=== PATIENT | female | born 1965 | race Caucasian/White ===

== ENCOUNTER 2017-09-09 23:05 | Inpatient (IN) ==
[2017-09-09 23:23] LABS: Basophils % 0.2 % (0.1-2.0); Eosinophils # 0.3 K/mm3 (0.0-0.4); Eosinophils % 1.6 % (0.1-12.0); Hematocrit 35.6 % (37.0-47.0); Hemoglobin 12.6 g/dL (12.2-16.2); Lymphocytes # 0.5 K/mm3 (0.7-4.5); Lymphocytes % 2.7 K/mm3 (10-50); Mean Corpuscular HGB Conc 35.4 g/dL (31.8-35.4); Mean Corpuscular Hemoglobin 30.3 pg (27.0-31.2); Mean Corpuscular Volume 85.6 fl (81-99); Mean Platelet Volume 7.8 fl (7.4-10.4); Monocytes # 0.3 K/mm3 (0.1-1.0); Monocytes % 1.4 % (1.7-9.3); Neutrophils # 17.1 K/mm3 (1.8-7.8); Neutrophils % 94.1 % (37.0-80.0); Platelet Count 231 K/mm3 (142-424); Red Blood Count 4.17 M/mm3 (4.20-5.40); Red Cell Distribution Width 12.7 % (11.5-17.5); White Blood Count 18.2 K/mm3 (4.8-10.8)
[2017-09-09 23:28] LABS: Microscopic, Urine URINE MICROSCOPIC (MICROSCOPIC)
[2017-09-09 23:33] LABS: Appearance,Urine SL CLOUDY (Clear); Bilirubin,Urine Negative (Negative); Blood, Urine 2+ (Negative); Color,Urine YELLOW (Yellow); Glucose,Urine (UA) Negative (Negative); Ketones,Urine 1+ (Negative); Leukocyte Esterase,Urine TRACE (Negative); Protein,Urine TRACE (Negative); Specific Gravity, Urine 1.025 (1.005-1.030); Urobilinogen,Urine 0.2 EU/dl (0.2)
[2017-09-09 23:36] LABS: Amorphous Sediment,Urine 1+ /lpf; Mucus,Urine 2+ /lpf
[2017-09-09 23:39] LABS: Lymphocytes % 3 % (10-50); Monocytes % 3 % (2-9); Neutrophils % 82 % (42-76); RBC Morphology Normal; Rouleaux 1+; Total Cells Counted 100; Toxic Granulation 1+
[2017-09-09 23:40] LABS: Albumin Level 3.2 gm/dL (3.4-5.0); Albumin/Globulin Ratio 0.9 (1.1-1.8); Anion Gap 16.1 mEq/L (5-15); C-Reactive Protein 9.4 mg/L (0.0-0.9); Calcium 7.9 mg/dL (8.5-10.1); Globulin 3.4 gm/dl (1.3-3.2); Potassium 3.1 mmoL/L (3.5-5.1); Total Protein,Serum 6.6 gm/dL (6.4-8.2)
[2017-09-09 23:48] LABS: Creatine Kinase 37 U/L (26-192)
--- NOTE | 2017-09-10 00:17 | Emergency Department Note ---
ED Disposition Clinical Impression: Colitis, Hypokalemia, Vasovagal episode Disposition: Admitted As Inpatient Condition on Discharge: Good Referrals: Austin Gomez MD [Primary Care Provider] - - Critical Care Critical Care Time: No Attestation: On 09/09/17, the high probability of a clinically significant, sudden or life threatening deterioration of the following system(s) required my full and direct attention, intervention and personal management. The time I documented below is in addition to time spent performing reported procedures but includes the following listed in this critical care notation. Medical Decision Making - Medical Records Medical records reviewed: Yes: I reviewed the patient's medical records. - Bebo Inquiry Pt receiving controlled substance: No Vital Signs: 09/09/17 23:05 09/09/17 23:22 Temperature 98.6 F Temperature Source Oral Pulse Rate [Orthostatic Lying Right Radial] 96 H Pulse Rate [Orthostatic Sitting Right Radial] 104 H Pulse Rate [Orthostatic Standing Right Radial] 111 H Pulse Rate [Right Radial] 95 H Respiratory Rate 18 Blood Pressure [Orthostatic Lying Right Arm] 109/56 Blood Pressure [Orthostatic Sitting Right Arm] 124/65 Blood Pressure [Orthostatic Standing Right Arm] 102/50 Blood Pressure [Right Arm] 104/62 Blood Pressure Mean [Right Arm] 76 Blood Pressure Source [Right Arm] Automatic Cuff Blood Pressure Position [Right Arm] Sitting 02 Sat by Pulse Oximetry 98 Oxygen Delivery Method Room Air - Lab Data Lab results reviewed: Yes: I reviewed the patient's lab results. Lab Results 09/09/17 23:18: WBC 18.2 H, RBC 4.17 L, Hgb 12.6, Hct 35.6 L, MCV 85.6, MCH 30.3 , MCHC 35.4, RDW 12.7, Plt Count 231, MPV 7.8, Neut % (Auto) 94.1 H, Lymph % ( Auto) 2.7 L, Haakon % (Auto) 1.4 L, Eos % (Auto) 1.6, Baso % (Auto) 0.2, Neut # ( Auto) 17.1 H, Lymph # (Auto) 0.5 L, Haakon # (Auto) 0.3, Eos # (Auto) 0.3, Baso # (Auto) 0.0, Total Counted 100, Neutrophils % (Manual) 82 H, Band Neutrophils % 12.0 H, Lymphocytes % (Manual) 3 L, Monocytes % (Manual) 3, Toxic Granulation 1+ , Platelet Estimate Normal, RBC Morphology Normal, Rouleaux 1+ 09/09/17 23:18: Sodium 137, Potassium 3.1 L, Chloride 101, Carbon Dioxide 23, Anion Gap 16.1 H, BUN 14, Creatinine 0.94, Estimated Creat Clear 64, Estimated GFR 62, Est GFR ( Amer) 75, Glucose 125 H, Calcium 7.9 L, Total Bilirubin 1.0, AST 10 L, ALT 24, Alkaline Phosphatase 54, C-Reactive Protein 9.4 H, Total Protein 6.6, Albumin 3.2 L, Globulin 3.4 H, Albumin/Globulin Ratio 0.9 L 09/09/17 23:18: ESR 12 09/09/17 23:18: Total Creatine Kinase 37, CK-MB (CK-2) < 0.5, CK-MB (CK-2) Rel Index 1.4, Troponin I < 0.02 09/09/17 23:22: Urine Color Yellow, Urine Appearance Sl cloudy, Urine pH 6.0, Ur Specific E[place] 1.025, Urine Protein Trace, Urine Glucose (UA) Negative, Urine Ketones 1+, Urine Blood 2+, Urine Nitrate Negative, Urine Bilirubin Negative, Urine Urobilinogen 0.2, Ur Leukocyte Esterase Trace, Urine RBC 5-10, Urine WBC 3-5, Ur Squamous Epith Cells 10-20, Amorphous Sediment 1+, Urine Mucus 2+ 09/09/17 23:59: Lactic Acid 1.8 Result diagrams: 09/09/17 23:18 09/09/17 23:18 Orders (Tests/Meds): ORDERS Category Date Time Status CT abdomen pelvis wo con Stat Cat Scan 09/09/17 23:[address] head/brain wo con Stat Cat Scan 09/09/17 23:12 Taken Diarrhea Panel, PCR Stat Lab 09/09/17 23:23 Received Blood Culture Stat Micro 09/09/17 23:59 Received ECG Request by /Zhao Stat Y 09/09/17 23:12 Ordered - CT Data CT Scan: Head, Abdomen, Pelvis Time Received: 00:[address] Reviewed: Yes: I have viewed the radiologist's interpretation Preliminary Findings: Abnormal (colitis) - ECG Data Tracing #1 I reviewed this ECG and interpreted as documented below: Normal Sinus Rhythm: Yes Ischemic changes: non-specific ST-T wave changes - Physician Consults Physician Consulted: myrna Reason -: Admission Nausea/Vomiting/Diarrhea HPI - General Chief complaint: Dizziness Stated complaint: dizziness,N/V/D, Abd pain Time Seen by Provider: 09/09/17 23:10 Mode of Arrival: EMS Source of Information: Patient, Spouse, EMS, Medical Record Limitations: No Limitations Description of Symptoms (Recalled from ER Triage Doc. by RN): Pt reports nausea , vomiting, diarrhea, and abdominal pain for two days. Tonight she got dizzy and had a syncopal episode. - History of Present Illness HPI Narrative: crampy abd pain over the last 2 days with diarrhea and dec po intake and vasovagal episode petrona GARCIA complaint: nausea, vomiting, diarrhea, abdominal pain Onset (ago): day(s) Description of Diarrhea: other (foul smell) Associated Abdominal Pain: Yes Location of pain: diffuse Severity: moderate Associated symptoms: nausea/vomiting - Related Data Home Medications Medication Instructions Recorded Confirmed Cefdinir [Omnicef 300mg Capsule] 300 mg PO BID 09/09/17 09/09/17 Losartan/Hydrochlorothiazide 1 tab PO DAILY 09/09/17 09/09/17 [Losartan-Hctz 50-12.5 mg Tab] Allergies Allergy/AdvReac Type Severity Reaction Status Date / Time Tetanus Vaccines and Toxoid AdvReac Severe I-ITCHING Verified 09/09/17 23:12 [TETANUS VACCINES & TOXOID] [facility] History I have reviewed the patient's past medical history: Yes - Social History Alcohol Intake: never - Psychiatric History Expresses thoughts of harming self/others: None Suicide Plan Description: No Plan ROS Obtained: Yes All systems reviewed & no additional complaints - Constitutional Constitutional: Denies fever(s) - Eyes Eyes: Denies change in vision - ENT Ears, Nose, Mouth, and Throat: Denies sore throat - Cardiovascular Cardiovascular: Denies chest pain - Respiratory Respiratory: No cough - Gastrointestinal Gastrointestingal: Reports: as per HPI, abdominal pain, diarrhea, nausea, vomiting - Genitourinary Female Genitourinary: Denies hematuria - Musculoskeletal Musculoskeletal: Denies joint pain, Denies joint swelling - Integumentary/Breasts Skin/Breast: Denies rash - Neurologic Neurologic: Denies seizure-like activity Physical Exam - General General appearance: in no apparent distress - Head Head exam: normocephalic - Eye Eye exam: Present: PERRL, EOMI - ENT ENT exam: Present: mucous membranes dry - Neck Neck exam: Present: trachea midline - Respiratory Respiratory exam: Absent: respiratory distress - Cardiovascular Cardiovascular exam: Present: regular rate, systolic murmur - Abdominal Exam Abdominal exam: Present: soft, tenderness Abdominal tenderness: Present: epigastrium, moderate - Extremities Exam Extremities exam: Present: full ROM - Neurological Exam Neurological exam: Present: alert, oriented X3, CN II-XII intact - Psychiatric Psychiatric exam: Present: normal affect - Skin Skin exam: Absent: rash
[2017-09-10 06:38] LABS: Basophils # 0.1 K/mm3 (0-0.2); Basophils % 0.3 % (0.1-2.0); Eosinophils # 0.3 K/mm3 (0.0-0.4); Eosinophils % 1.7 % (0.1-12.0); Hematocrit 35.1 % (37.0-47.0); Lymphocytes # 0.7 K/mm3 (0.7-4.5); Lymphocytes % 4.1 K/mm3 (10-50); Mean Corpuscular HGB Conc 34.3 g/dL (31.8-35.4); Mean Corpuscular Hemoglobin 29.4 pg (27.0-31.2); Mean Corpuscular Volume 85.7 fl (81-99); Mean Platelet Volume 7.6 fl (7.4-10.4); Monocytes # 0.4 K/mm3 (0.1-1.0); Monocytes % 2.5 % (1.7-9.3); Neutrophils # 15.4 K/mm3 (1.8-7.8); Neutrophils % 91.4 % (37.0-80.0); Platelet Count 239 K/mm3 (142-424); Red Cell Distribution Width 12.9 % (11.5-17.5); White Blood Count 16.8 K/mm3 (4.8-10.8)
[2017-09-10 06:42] LABS: Anion Gap 14.9 mEq/L (5-15); Calcium 7.7 mg/dL (8.5-10.1)
[2017-09-10 06:51] LABS: Potassium 2.9 mmoL/L (3.5-5.1)
--- NOTE | 2017-09-10 07:35 | Pharmacy Consult Notes ---
[facility] Pharmacy VTE Monitoring - Patient Demographics Admission date: 09/10/17 Report Date: 09/10/17 Time: 07:35 Allergies/Adverse Reactions: Patient Allergies Tetanus Vaccines and Toxoid [TETANUS VACCINES & TOXOID] Adverse Reaction (Severe , Verified 09/09/17 23:12) I-ITCHING Height: 1.47 m Weight: 61.944 kg Patient Problems: Current Active Problems Colitis (Acute) Hypokalemia (Acute) Vasovagal episode (Acute) - VTE Risk Labs: VTE Related Lab Results Hgb 12.0 g/dL (12.2-16.2) L 09/10/17 06:18 Hct 35.1 % (37.0-47.0) L 09/10/17 06:18 Plt Count 239 K/mm3 (142-424) 09/10/17 06:18 BUN 13 mg/dL (7-18) 09/10/17 06:18 Creatinine 0.82 mg/dL (0.55-1.02) 09/10/17 06:18 Estimated Creat Clear 78 mL/min (0-300) 09/10/17 06:18 Was VTE Risk Assessment Performed: Yes VTE Score: 5 VTE Risk Level: Very Low Risk - Prophylaxis VTE Prophylaxis Ordered?: Yes Types of VTE Prophylaxis: TEDS Knee High Location of Applied Device: Bilateral Lower Extremeties - VTE Diagnosis Confirmed Treatment or plan recommended: Continue Current Treatment
--- NOTE | 2017-09-10 08:09 | History & Physical Report ---
*Admission Date: 09/10/17 <EktaRenyMonica 09/10/17 08:22> *Chief complaint: abdominal pain,vomiting and diarrhea <EktaRenyMonica 08:22> *History of present illness: Ms. Gross is a 51-year-old female with a history of hypertension and depression who presented to [facility] emergency room after experiencing nausea, vomiting, and diarrhea for 24 hours. She and her also described a syncopal episode when she was going to the bathroom. Her states that she was out for about a minute and she did lose control of her bowels or bladder. She describes numerous stools along with vomiting and dry heaving. She denies fever. She denies chest pain, shortness of breath and palpitations. She was seen in the office of [facility] on 2017 and was started on Ceftin for a right otitis media. She has had no other respiratory symptoms. She arrived in the room about 2 AM and has had minimal sleep. She has had no further vomiting or diarrhea since admission. She continues to have some abdominal pain. To note patient has recently been started on hydrochlorothiazidelosartan 12.5 50 for her hypertension. Follow-up in the office on 08/31/2017 showed a blood pressure of 118/74. <Monica Dash 09/10/17 08:22> [facility] History Medical History: Reports:: Depression, Hypertension, Migraine Denies:: Cancer, Chronic Obstructive Pulmonary Disease (COPD), Diabetes Mellitus Type 1, Diabetes Mellitus Type 2, MRSA <Monica Dash 09/10/17 08: 22> Other Medical History: Reports: Arthritis, Sinus Problems <Monica Dash 08:22> Other Surgeries: Yes: Appendectomy, , Hernia Repair <Monica Dash 09/10/17 08:22> Amputation: No <Monica Dash 09/10/17 08:22> Fractures: No <Monica Dash 09/10/17 08:22> - *Social History Educational Level: Completed High School <Monica Dash 09/10/17 08:22> Alcohol Intake: never <Moinca Dash 09/10/17 08:22> Occupational Status: employed <Monica Dash 09/10/17 08:22> Housing: house <Monica Dash 09/10/17 08:22> Household Members: spouse <Monica Dash 09/10/17 08:22> - Psychiatric History Expresses thoughts of harming self/others: None <Monica Dash 09/10/17 08: 22> Suicide Plan Description: No Plan <Monica Dash 09/10/17 08:22> *Family Hx:: Cancer, Heart Attack, Hypertension <Monica Dash 09/10/17 08: 22> Review of Systems - Constitutional Denies fever(s), Denies headache(s) <Monica Dash 09/10/17 08:22> - ENT Denies ear pain, Denies sore throat <Monica Dash 09/10/17 08:22> - *Cardiovascular Denies chest pain, Denies shortness of breath, Denies irregular heart rhythm, Denies leg swelling <Monica Dash 09/10/17 08:22> - *Respiratory Denies chest congestion, Denies cough, Denies shortness of breath, Denies coughing up blood <Monica Dash 09/10/17 08:22> - *Gastrointestinal Reports abdominal pain, Reports change in bowel habits, Reports change in stools , Reports cramping, Reports loose stools, Reports nausea, Reports vomiting, Denies constipation, Denies heartburn, Denies vomiting blood, Denies bright, red blood in stools, Denies black, tarry stools <Monica Dash 09/10/17 08: 22> - *Genitourinary Denies blood in urine <Monica Dash 09/10/17 08:22> Comments: Decrease in urinary output. Irregular menses. <Monica Dash 09/10/17 08:22> - *Musculoskeletal Denies abnormal walking, Denies joint pain <Monica Dash 09/10/17 08:22> - *Neurologic Reports dizziness, Reports fainting, Reports dizziness, Denies seizure-like activity <Monica Dash 09/10/17 08:22> Comments: Patient did have a fainting episode when going to the bathroom with a fall just prior to this. She describes dizziness prior to the fall but no chest pain or shortness of breath. <Monica Dash - 09/10/17 08:22> Meds Home Medications Medication Instructions Recorded Confirmed Type Cefdinir [Omnicef 300mg Capsule] 300 mg PO BID 09/09/17 09/09/17 History Losartan/Hydrochlorothiazide 1 tab PO DAILY 09/09/17 09/09/17 History [Losartan-Hctz 50-12.5 mg Tab] <Austin Gomez - 09/10/17 17:41> Allergies Allergy/AdvReac Type Severity Reaction Status Date / Time Tetanus Vaccines and Toxoid AdvReac Severe I-ITCHING Verified 09/09/17 23:12 [TETANUS VACCINES & TOXOID] <Austin Gomez - 09/10/17 17:41> Exam Vital signs and Labs for Last 24 Hours: Temp Pulse Resp BP Pulse Ox 98.5 F 89 18 104/55 94 L 09/10/17 15:37 09/10/17 15:37 09/10/17 16:03 09/10/17 15:37 09/10/17 15:37 Laboratory Results - last 24 hr 09/09/17 23:18: WBC 18.2 H, RBC 4.17 L, Hgb 12.6, Hct 35.6 L, MCV 85.6, MCH 30.3 , MCHC 35.4, RDW 12.7, Plt Count 231, MPV 7.8, Neut % (Auto) 94.1 H, Lymph % ( Auto) 2.7 L, K[place]haw % (Auto) 1.4 L, Eos % (Auto) 1.6, Baso % (Auto) 0.2, Neut # ( Auto) 17.1 H, Lymph # (Auto) 0.5 L, K[place] # (Auto) 0.3, Eos # (Auto) 0.3, Baso # (Auto) 0.0, Total Counted 100, Neutrophils % (Manual) 82 H, Band Neutrophils % 12.0 H, Lymphocytes % (Manual) 3 L, Monocytes % (Manual) 3, Toxic Granulation 1+ , Platelet Estimate Normal, RBC Morphology Normal, Rouleaux 1+ 09/09/17 23:18: Sodium 137, Potassium 3.1 L, Chloride 101, Carbon Dioxide 23, Anion Gap 16.1 H, BUN 14, Creatinine 0.94, Estimated Creat Clear 64, Estimated GFR 62, Est GFR ( Amer) 75, Glucose 125 H, Calcium 7.9 L, Total Bilirubin 1.0, AST 10 L, ALT 24, Alkaline Phosphatase 54, C-Reactive Protein 9.4 H, Total Protein 6.6, Albumin 3.2 L, Globulin 3.4 H, Albumin/Globulin Ratio 0.9 L 09/09/17 23:18: ESR 12 09/09/17 23:18: Total Creatine Kinase 37, CK-MB (CK-2) < 0.5, CK-MB (CK-2) Rel Index 1.4, Troponin I < 0.02 09/09/17 23:22: Urine Color Yellow, Urine Appearance Sl cloudy, Urine pH 6.0, Ur Specific Down[place] 1.025, Urine Protein Trace, Urine Glucose (UA) Negative, Urine Ketones 1+, Urine Blood 2+, Urine Nitrate Negative, Urine Bilirubin Negative, Urine Urobilinogen 0.2, Ur Leukocyte Esterase Trace, Urine RBC 5-10, Urine WBC 3-5, Ur Squamous Epith Cells 10-20, Amorphous Sediment 1+, Urine Mucus 2+ 09/09/17 23:59: Lactic Acid 1.8 09/10/17 00:20: Stl Aeromonas (PCR) Not detected, Stl C. cayetanensis PCR Not detected, Stool Rotavirus (PCR) Not detected, Stl Adenov F 40/41 PCR Not detected, Stool Astrovirus (PCR) Not detected, Stool Campylobacter PCR Not detected, Stl C.difficile Tox PCR Detected A, Stool Cryptosporidium PCR Not detected, Stl E.coli Shiga Tox PCR Not detected, Stool E coli O157 PCR Not detected, Stl Enterotoxigenic E PCR Not detected, Stool EPEC (PCR) Not detected , Stool EAEC (PCR) Not detected, Stl E. histolytica PCR Not detected, Stool Giardia Lamblia PCR Not detected, Stool Salmonella PCR Not detected, Stool Sapovirus (PCR) Not detected, Stl P. shigelloides PCR Not detected, Stl Shigella /EIEC PCR Not detected, St Y.enterocolitica PCR Not detected, Stool Vibrio (PCR ) Not detected, Stl Vibrio cholerae PCR Not detected, Stl Norovirus GI/GII PCR Not detected 09/10/17 06:18: WBC 16.8 H, RBC 4.10 L, Hgb 12.0 L, Hct 35.1 L, MCV 85.7, MCH 29.4, MCHC 34.3, RDW 12.9, Plt Count 239, MPV 7.6, Neut % (Auto) 91.4 H, Lymph % (Auto) 4.1 L, Kershaw % (Auto) 2.5, Eos % (Auto) 1.7, Baso % (Auto) 0.3, Neut # ( Auto) 15.4 H, Lymph # (Auto) 0.7, Kershaw # (Auto) 0.4, Eos # (Auto) 0.3, Baso # ( Auto) 0.1 09/10/17 06:18: Sodium 139, Potassium 2.9 L*, Chloride 103, Carbon Dioxide 24, Anion Gap 14.9, BUN 13, Creatinine 0.82, Estimated Creat Clear 78, Estimated GFR 73, Est GFR ( Amer) 88, Glucose 124 H, Calcium 7.7 L 09/10/17 12:07: POC Glucose 101 <PatriciaAustin William - 09/10/17 17:41> Temp Pulse Resp BP Pulse Ox 98.7 F 78 16 100/58 95 09/10/17 08:00 09/10/17 08:00 09/10/17 08:00 09/10/17 08:00 09/10/17 08:00 Laboratory Results - last 24 hr 09/09/17 23:18: WBC 18.2 H, RBC 4.17 L, Hgb 12.6, Hct 35.6 L, MCV 85.6, MCH 30.3 , MCHC 35.4, RDW 12.7, Plt Count 231, MPV 7.8, Neut % (Auto) 94.1 H, Lymph % ( Auto) 2.7 L, [place]haw % (Auto) 1.4 L, Eos % (Auto) 1.6, Baso % (Auto) 0.2, Neut # ( Auto) 17.1 H, Lymph # (Auto) 0.5 L, [place] # (Auto) 0.3, Eos # (Auto) 0.3, Baso # (Auto) 0.0, Total Counted 100, Neutrophils % (Manual) 82 H, Band Neutrophils % 12.0 H, Lymphocytes % (Manual) 3 L, Monocytes % (Manual) 3, Toxic Granulation 1+ , Platelet Estimate Normal, RBC Morphology Normal, Rouleaux 1+ 09/09/17 23:18: Sodium 137, Potassium 3.1 L, Chloride 101, Carbon Dioxide 23, Anion Gap 16.1 H, BUN 14, Creatinine 0.94, Estimated Creat Clear 64, Estimated GFR 62, Est GFR ( Amer) 75, Glucose 125 H, Calcium 7.9 L, Total Bilirubin 1.0, AST 10 L, ALT 24, Alkaline Phosphatase 54, C-Reactive Protein 9.4 H, Total Protein 6.6, Albumin 3.2 L, Globulin 3.4 H, Albumin/Globulin Ratio 0.9 L 09/09/17 23:18: ESR 12 09/09/17 23:18: Total Creatine Kinase 37, CK-MB (CK-2) < 0.5, CK-MB (CK-2) Rel Index 1.4, Troponin I < 0.02 09/09/17 23:22: Urine Color Yellow, Urine Appearance Sl cloudy, Urine pH 6.0, Ur Specific Downing 1.025, Urine Protein Trace, Urine Glucose (UA) Negative, Urine Ketones 1+, Urine Blood 2+, Urine Nitrate Negative, Urine Bilirubin Negative, Urine Urobilinogen 0.2, Ur Leukocyte Esterase Trace, Urine RBC 5-10, Urine WBC 3-5, Ur Squamous Epith Cells 10-20, Amorphous Sediment 1+, Urine Mucus 2+ 09/09/17 23:59: Lactic Acid 1.8 09/10/17 00:20: Stl Aeromonas (PCR) Not detected, Stl C. cayetanensis PCR Not detected, Stool Rotavirus (PCR) Not detected, Stl Adenov F 40/41 PCR Not detected, Stool Astrovirus (PCR) Not detected, Stool Campylobacter PCR Not detected, Stl C.difficile Tox PCR Detected A, Stool Cryptosporidium PCR Not detected, Stl E.coli Shiga Tox PCR Not detected, Stool E coli O157 PCR Not detected, Stl Enterotoxigenic E PCR Not detected, Stool EPEC (PCR) Not detected , Stool EAEC (PCR) Not detected, Stl E. histolytica PCR Not detected, Stool Giardia Lamblia PCR Not detected, Stool Salmonella PCR Not detected, Stool Sapovirus (PCR) Not detected, Stl P. shigelloides PCR Not detected, Stl Shigella /EIEC PCR Not detected, St Y.enterocolitica PCR Not detected, Stool Vibrio (PCR ) Not detected, Stl Vibrio cholerae PCR Not detected, Stl Norovirus GI/GII PCR Not detected 09/10/17 06:18: WBC 16.8 H, RBC 4.10 L, Hgb 12.0 L, Hct 35.1 L, MCV 85.7, MCH 29.4, MCHC 34.3, RDW 12.9, Plt Count 239, MPV 7.6, Neut % (Auto) 91.4 H, Lymph % (Auto) 4.1 L, Kershaw % (Auto) 2.5, Eos % (Auto) 1.7, Baso % (Auto) 0.3, Neut # ( Auto) 15.4 H, Lymph # (Auto) 0.7, [place] # (Auto) 0.4, Eos # (Auto) 0.3, Baso # ( Auto) 0.1 09/10/17 06:18: Sodium 139, Potassium 2.9 L*, Chloride 103, Carbon Dioxide 24, Anion Gap 14.9, BUN 13, Creatinine 0.82, Estimated Creat Clear 78, Estimated GFR 73, Est GFR ( Amer) 88, Glucose 124 H, Calcium 7.7 L <Monica Dash - 09/10/17 08:22> I & O for Last 24 hours: Intake & Output 09/08/17 09/09/17 09/10/17 09/11/17 11:59 11:59 11:59 11:59 Intake Total 434 / 434 Output Total 300 / 300 Balance 134 / 134 Weight 136 lb 9 oz <Austin Gomez - 09/10/17 17:41> Intake & Output 09/07/17 09/08/17 09/09/17 09/10/17 11:59 11:59 11:59 11:59 Intake Total 334 / 334 Output Total 300 / 300 Balance 34 / 34 Weight 136 lb 9 oz <Monica Dash - 09/10/17 08:22> - Constitutional no acute distress <Monica Dash 09/10/17 08:22> Comments: Appears uncomfortable at times <Monica Dash 09/10/17 08:22> - *Routine HEENT Exam Head: Present: normocephalic, atraumatic <EktaMonica - 09/10/17 08:22> Eye: Present: PERRL. Absent: conjunctival icterus, scleral injection <[facility] 09/10/17 08:22> ENT: Present: mucous membranes moist, oropharynx clear, external ear normal, TM' s clear bilaterally <Dash,Monica - 09/10/17 08:22> - *Routine Neck Exam Present: supple. Absent: carotid bruit, lymphadenopathy, thyromegaly <Dash RenyMonica - 09/10/17 08:22> - *Routine Respiratory Exam Present: CTA bilaterally (Anteriorly and posteriorly) <Dash,[facility] 08:22> - *Routine Cardiovascular Exam Present: RRR <Dash,Monica - 09/10/17 08:22> - *Routine Abdominal Exam Present: soft, normoactive bowel sounds, tenderness (Diffusely) <Dash, [facility] 09/10/17 08:22> - *Routine Extremities Exam Absent: edema, calf tenderness [facility] 09/10[facility] 08:22> - *Routine Skin Exam Present: dry, warm <Dash,[facility] 09/10/17 08:22> - *Routine Neurological Exam Present: alert, oriented X3 <Dash,[facility] 09/10/17 08:22> H&P: Result - Labs Labs: Short CBC 09/09/17 09/10/17 Range/Units 23:18 06:18 WBC 18.2 H 16.8 H (4.8-10.8) K/mm3 Hgb 12.6 12.0 L (12.2-16.2) g/dL Hct 35.6 L 35.1 L (37.0-47.0) % Plt Count 231 239 (142-424) K/mm3 BMP 09/09/17 09/10/17 23:18 06:18 Sodium 137 139 Potassium 3.1 L 2.9 L* Chloride 101 103 Carbon Dioxide 23 24 BUN 14 13 Creatinine 0.94 0.82 Glucose 125 H 124 H Calcium 7.9 L 7.7 L Cardiac Enzymes 09/09/17 Range/Units 23:18 Total Creatine Kinase 37 (26-192) U/L CK-MB (CK-2) < 0.5 (0.0-3.6) ng/ml Troponin I < 0.02 (0.00-0.06) ng/ml Liver Function 09/09/17 Range/Units 23:18 Total Bilirubin 1.0 (0.2-1.0) mg/dL AST 10 L (15-37) U/L ALT 24 (12-78) U/L Alkaline Phosphatase 54 (46-116) U/L Albumin 3.2 L (3.4-5.0) gm/dL Urine 09/09/17 Range/Units 23:22 Urine Color Yellow (Yellow) Urine Appearance Sl cloudy (Clear) Urine pH 6.0 (5.0-8.5) Ur Specific Downing 1.025 (1.005-1.030) Urine Protein Trace (Negative) Urine Glucose (UA) Negative (Negative) <PatriciaAustin William - 09/10/17 17:41> Short CBC 09/09/17 09/10/17 Range/Units 23:18 06:18 WBC 18.2 H 16.8 H (4.8-10.8) K/mm3 Hgb 12.6 12.0 L (12.2-16.2) g/dL Hct 35.6 L 35.1 L (37.0-47.0) % Plt Count 231 239 (142-424) K/mm3 BMP 09/09/17 09/10/17 23:18 06:18 Sodium 137 139 Potassium 3.1 L 2.9 L* Chloride 101 103 Carbon Dioxide 23 24 BUN 14 13 Creatinine 0.94 0.82 Glucose 125 H 124 H Calcium 7.9 L 7.7 L Cardiac Enzymes 09/09/17 Range/Units 23:18 Total Creatine Kinase 37 (26-192) U/L CK-MB (CK-2) < 0.5 (0.0-3.6) ng/ml Troponin I < 0.02 (0.00-0.06) ng/ml Liver Function 09/09/17 Range/Units 23:18 Total Bilirubin 1.0 (0.2-1.0) mg/dL AST 10 L (15-37) U/L ALT 24 (12-78) U/L Alkaline Phosphatase 54 (46-116) U/L Albumin 3.2 L (3.4-5.0) gm/dL Urine 09/09/17 Range/Units 23:22 Urine Color Yellow (Yellow) Urine Appearance Sl cloudy (Clear) Urine pH 6.0 (5.0-8.5) Ur Specific [place] 1.025 (1.005-1.030) Urine Protein Trace (Negative) Urine Glucose (UA) Negative (Negative) <EktaMonica - 09/10/17 08:22> Assessment and Plan (1) Colitis Current visit: Yes Status: Acute Category: Medical Code(s): K52.9 - Noninfective gastroenteritis and colitis, unspecified (2) Hypokalemia Current visit: Yes Status: Acute Category: Medical Code(s): E87.6 - Hypokalemia (3) Vasovagal episode Current visit: Yes Status: Acute Category: Medical Code(s): R55 - Syncope and collapse (4) HTN (hypertension) Current visit: Yes Status: Chronic Category: Medical Code(s): I10 - Essential (primary) hypertension <Monica Dash - 09/10/17 08:05> (1) C. difficile colitis Current visit: Yes Status: Acute Category: Medical Code(s): A04.72 - Enterocolitis due to Clostridium difficile, not specified as recurrent (2) Hypokalemia Current visit: Yes Status: Acute Category: Medical Code(s): E87.6 - Hypokalemia (3) Vasovagal episode Current visit: Yes Status: Acute Category: Medical Code(s): R55 - Syncope and collapse (4) HTN (hypertension) Current visit: Yes Status: Chronic Category: Medical Code(s): I10 - Essential (primary) hypertension <Austin Gomez - 09/10/17 17:41> - Assessment and plan all Dx Assessment and Plan for all problems:: Patient seen and examined this AM. PCR diarrhea panel is positive for C. diff. Concur current plan of care. <Austin Gomez - 09/10/17 17:41> Add IV potassium to IV fluids and increased rate as well as start p.o. potassium as tolerated. Continue with GI rest and will try ice chips. Continue with IV metronidazole and comfort measures <Monica Dash - 09/10/17 08:22>
[2017-09-11 06:12] LABS: Basophils % 0.3 % (0.1-2.0); Eosinophils # 0.2 K/mm3 (0.0-0.4); Eosinophils % 2.1 % (0.1-12.0); Hematocrit 31.7 % (37.0-47.0); Lymphocytes % 11.4 K/mm3 (10-50); Mean Corpuscular HGB Conc 33.1 g/dL (31.8-35.4); Mean Corpuscular Hemoglobin 29.2 pg (27.0-31.2); Mean Corpuscular Volume 88.4 fl (81-99); Mean Platelet Volume 8.6 fl (7.4-10.4); Monocytes # 0.5 K/mm3 (0.1-1.0); Neutrophils # 7.5 K/mm3 (1.8-7.8); Neutrophils % 81.2 % (37.0-80.0); Platelet Count 211 K/mm3 (142-424); Red Blood Count 3.59 M/mm3 (4.20-5.40); White Blood Count 9.2 K/mm3 (4.8-10.8)
[2017-09-11 06:22] LABS: Hemoglobin 10.6 g/dL (12.2-16.2)
[2017-09-11 06:29] LABS: Anion Gap 8.8 mEq/L (5-15); Calcium 7.4 mg/dL (8.5-10.1); Potassium 3.8 mmoL/L (3.5-5.1)
--- NOTE | 2017-09-11 08:02 | Progress Note ---
<Monica Dash - Last Filed: 09/11/17 07:58> Internal Medicine - PN: Subj *Date: 09/11/17 *Time: 07:58 Interval history: Patient does not feel any better. She slept very little during the night and has been awake since 3 AM. She continues to have frequent diarrhea stools with decreased quantity. She is voiding some. She still is nauseated but has not vomited. She has tried clear liquids. She feels some crackers or toast might settle her stomach. She has been up to the bedside commode. Exam Vital signs and Labs for Last 24 Hours: Temp Pulse Resp BP Pulse Ox 98.0 F 74 18 86/47 98 09/11/17 07:47 09/11/17 07:47 09/11/17 07:47 09/11/17 07:47 09/11/17 07:47 Laboratory Results - last 24 hr 09/10/17 12:07: POC Glucose 101 09/11/17 06:00: WBC 9.2 D, RBC 3.59 L, Hgb 10.6 L D, Hct 31.7 L, MCV 88.4, MCH 29.2, MCHC 33.1, RDW 13.0, Plt Count 211, MPV 8.6, Neut % (Auto) 81.2 H, Lymph % (Auto) 11.4, [place] % (Auto) 5.0, Eos % (Auto) 2.1, Baso % (Auto) 0.3, Neut # ( Auto) 7.5, Lymph # (Auto) 1.0, [place] # (Auto) 0.5, Eos # (Auto) 0.2, Baso # (Auto ) 0.0 09/11/17 06:00: Sodium 141, Potassium 3.8 D, Chloride 111 H, Carbon Dioxide 25 , Anion Gap 8.8, BUN 7 D, Creatinine 0.76, Estimated Creat Clear 84, Estimated GFR 80, Est GFR ( Amer) 96, Glucose 106, Calcium 7.4 L I & O for Last 24 hours: Intake & Output 09/08/17 09/09/17 09/10/17 09/11/17 11:59 11:59 11:59 11:59 Intake Total 434 / 434 3230 / 3230 Output Total 300 / 300 604 / 604 Balance 134 / 134 2626 / 2626 Weight 136 lb 9 oz Radiology Reports for the Last 24 Hours: CT of head 09/10/2017 IMPRESSION: No acute intracranial findings. . Only question some very subtle lower density asymmetry at the right of the torcula... Which are believe most likely related to volume averaging at region of tentorium.. However low threshold for pursuing MR brain with without contrast would be suggested, particularly if dizziness, headache or other symptoms persist. Would also suggest thorough check of visual field on physical exam. Skull intact. Paranasal sinuses clear. Mastoids unremarkable CT of abdomenpelvis 09/10/2017 IMPRESSION............... 1. Wall thickening throughout the rectum suggest mild proctitis Wall thickening rectosigmoid and descending colon compatible with colitis. Mild/moderate liquid stool throughout colon associated. 2. Fatty wall thickening at the cecum and right colon. Nonspecific but can be reflection of chronic inflammatory bowel changes.. Only questionable acute colitis findings at right colon otherwise noted 2. Cholelithiasis. No wall thickening or inflammatory changes gallbladder associated. 3.... Incidental 4.2 cm x 3.3 cm right ovarian cyst warrants follow-up in this age patient - Constitutional no acute distress - *Routine Respiratory Exam Present: CTA bilaterally - *Routine Cardiovascular Exam Present: RRR - *Routine Abdominal Exam Present: soft, normoactive bowel sounds, tenderness - *Routine Extremities Exam Absent: edema, calf tenderness - *Routine Neurological Exam Present: alert, oriented X3 Assessment and Plan (1) C. difficile colitis Current visit: Yes Status: Acute Category: Medical Code(s): A04.72 - Enterocolitis due to Clostridium difficile, not specified as recurrent (2) Hypokalemia Current visit: Yes Status: Acute Category: Medical Code(s): E87.6 - Hypokalemia (3) Vasovagal episode Current visit: Yes Status: Acute Category: Medical Code(s): R55 - Syncope and collapse (4) HTN (hypertension) Current visit: Yes Status: Chronic Category: Medical Code(s): I10 - Essential (primary) hypertension - Assessment and plan all Dx Assessment and Plan for all problems:: Blood pressure noted to be low. Will continue with IV fluids. Potassium has normalized. Patient feels like she might do well with some saltine crackers and toast. Will try full liquid diet. Continue with pain and nausea management <Austin Gomez - Last Filed: 09/11/17 08:58> Internal Medicine - PN: Subj *Date: 09/11/17 *Time: 08:56 Exam Vital signs and Labs for Last 24 Hours: Temp Pulse Resp BP Pulse Ox 98.0 F 74 18 86/47 98 09/11/17 07:47 09/11/17 07:47 09/11/17 07:47 09/11/17 07:47 09/11/17 07:47 Laboratory Results - last 24 hr 09/10/17 12:07: POC Glucose 101 09/11/17 06:00: WBC 9.2 D, RBC 3.59 L, Hgb 10.6 L D, Hct 31.7 L, MCV 88.4, MCH 29.2, MCHC 33.1, RDW 13.0, Plt Count 211, MPV 8.6, Neut % (Auto) 81.2 H, Lymph % (Auto) 11.4, [place] % (Auto) 5.0, Eos % (Auto) 2.1, Baso % (Auto) 0.3, Neut # ( Auto) 7.5, Lymph # (Auto) 1.0, [place] # (Auto) 0.5, Eos # (Auto) 0.2, Baso # (Auto ) 0.0 09/11/17 06:00: Sodium 141, Potassium 3.8 D, Chloride 111 H, Carbon Dioxide 25 , Anion Gap 8.8, BUN 7 D, Creatinine 0.76, Estimated Creat Clear 84, Estimated GFR 80, Est GFR ( Amer) 96, Glucose 106, Calcium 7.4 L I & O for Last 24 hours: Intake & Output 09/08/17 09/09/17 09/10/17 09/11/17 11:59 11:59 11:59 11:59 Intake Total 434 / 434 3230 / 3230 Output Total 300 / 300 604 / 604 Balance 134 / 134 2626 / 2626 Weight 136 lb 9 oz Assessment and Plan (1) C. difficile colitis Current visit: Yes Status: Acute Category: Medical Code(s): A04.72 - Enterocolitis due to Clostridium difficile, not specified as recurrent (2) Hypokalemia Current visit: Yes Status: Acute Category: Medical Code(s): E87.6 - Hypokalemia (3) Vasovagal episode Current visit: Yes Status: Acute Category: Medical Code(s): R55 - Syncope and collapse (4) HTN (hypertension) Current visit: Yes Status: Chronic Category: Medical Code(s): I10 - Essential (primary) hypertension - Assessment and plan all Dx Assessment and Plan for all problems:: Patient seen and examined. She is till having frequent stools but notes the stool volume has decreased WBC has decreased to normal range. Will advance diet and change to oral Flagyl.
--- NOTE | 2017-09-12 08:12 | Progress Note ---
<Gladis Penny - Last Filed: 09/12/17 08:10> Internal Medicine - PN: Subj *Date: 09/12/17 *Time: 08:10 Interval history: Patient states she was nauseated last night and vomited. She got some Phenergan and this did help and she was able to sleep. She is slightly nauseated this morning and did not feel like eating her breakfast. She is still having diarrhea and stomach cramps, but they have improved. Exam Vital signs and Labs for Last 24 Hours: Temp Pulse Resp BP Pulse Ox 98.8 F 83 18 123/64 94 L 09/12/17 07:54 09/12/17 07:54 09/12/17 07:54 09/12/17 07:54 09/12/17 07:54 I & O for Last 24 hours: Intake & Output 09/09/17 09/10/17 09/11/17 09/12/17 11:59 11:59 11:59 11:59 Intake Total 434 / 434 3230 / 3230 4615 / 4615 Output Total 300 / 300 604 / 604 2850 / 2850 Balance 134 / 134 2626 / 2626 1765 / 1765 Weight 136 lb 9 oz Microbiology Reports for the Last 24 Hours: Microbiology 09/09/17 23:59 Blood Blood Culture - Preliminary NO GROWTH AFTER 48 HOURS 09/09/17 23:59 Blood Blood Culture - Preliminary NO GROWTH AFTER 48 HOURS - Constitutional no acute distress - *Routine Respiratory Exam Present: CTA bilaterally - *Routine Cardiovascular Exam Present: RRR - *Routine Abdominal Exam Present: soft, normoactive bowel sounds, tenderness (LLQ) - *Routine Extremities Exam Absent: edema Assessment and Plan (1) C. difficile colitis Current visit: Yes Status: Acute Category: Medical Code(s): A04.72 - Enterocolitis due to Clostridium difficile, not specified as recurrent (2) Hypokalemia Current visit: Yes Status: Acute Category: Medical Code(s): E87.6 - Hypokalemia (3) Vasovagal episode Current visit: Yes Status: Acute Category: Medical Code(s): R55 - Syncope and collapse (4) HTN (hypertension) Current visit: Yes Status: Chronic Category: Medical Code(s): I10 - Essential (primary) hypertension - Assessment and plan all Dx Assessment and Plan for all problems:: We will continue antibiotics, antiemetics, and pain medication. <PatriciaAustin - Last Filed: 09/12/17 09:16> Internal Medicine - PN: Subj *Date: 09/12/17 *Time: 09:14 Exam Vital signs and Labs for Last 24 Hours: Temp Pulse Resp BP Pulse Ox 98.8 F 83 18 123/64 94 L 09/12/17 07:54 09/12/17 07:54 09/12/17 07:54 09/12/17 07:54 09/12/17 07:54 I & O for Last 24 hours: Intake & Output 09/09/17 09/10/17 09/11/17 09/12/17 11:59 11:59 11:59 11:59 Intake Total 434 / 434 3230 / 3230 4615 / 4615 Output Total 300 / 300 604 / 604 2850 / 2850 Balance 134 / 134 2626 / 2626 1765 / 1765 Weight 136 lb 9 oz Microbiology Reports for the Last 24 Hours: Microbiology 09/09/17 23:59 Blood Blood Culture - Preliminary NO GROWTH AFTER 48 HOURS 09/09/17 23:59 Blood Blood Culture - Preliminary NO GROWTH AFTER 48 HOURS Assessment and Plan (1) C. difficile colitis Current visit: Yes Status: Acute Category: Medical Code(s): A04.72 - Enterocolitis due to Clostridium difficile, not specified as recurrent (2) Hypokalemia Current visit: Yes Status: Acute Category: Medical Code(s): E87.6 - Hypokalemia (3) Vasovagal episode Current visit: Yes Status: Acute Category: Medical Code(s): R55 - Syncope and collapse (4) HTN (hypertension) Current visit: Yes Status: Chronic Category: Medical Code(s): I10 - Essential (primary) hypertension - Assessment and plan all Dx Assessment and Plan for all problems:: Patient seen and examined. She has been more nauseated since switching to PO Flagyl, with vomiting last night. Diarrhea is slowly resolving with less frequency and volume. Will switch to oral Vancomycin and stop the Flagyl.
[2017-09-13 07:00] LABS: Basophils % 0.4 % (0.1-2.0); Eosinophils # 0.3 K/mm3 (0.0-0.4); Eosinophils % 4.4 % (0.1-12.0); Hemoglobin 10.8 g/dL (12.2-16.2); Lymphocytes # 1.9 K/mm3 (0.7-4.5); Lymphocytes % 27.7 K/mm3 (10-50); Mean Corpuscular HGB Conc 33.6 g/dL (31.8-35.4); Mean Corpuscular Hemoglobin 29.3 pg (27.0-31.2); Mean Corpuscular Volume 87.3 fl (81-99); Mean Platelet Volume 7.7 fl (7.4-10.4); Monocytes # 0.5 K/mm3 (0.1-1.0); Monocytes % 6.9 % (1.7-9.3); Neutrophils # 4.1 K/mm3 (1.8-7.8); Neutrophils % 60.6 % (37.0-80.0); Platelet Count 328 K/mm3 (142-424); Red Blood Count 3.67 M/mm3 (4.20-5.40); Red Cell Distribution Width 12.8 % (11.5-17.5); White Blood Count 6.8 K/mm3 (4.8-10.8)
[2017-09-13 07:07] LABS: Anion Gap 6.3 mEq/L (5-15); Calcium 8.1 mg/dL (8.5-10.1); Potassium 4.3 mmoL/L (3.5-5.1)
--- NOTE | 2017-09-13 08:18 | Progress Note ---
<Gladis Penny - Last Filed: 09/13/17 08:16> Internal Medicine - PN: Subj *Date: 09/13/17 *Time: 08:16 Interval history: Patient feeling better this morning. She is still having diarrhea but her vomiting has resolved. She was able to eat a small amount although she is still nauseated. She got up and walked around the room yesterday. Exam Vital signs and Labs for Last 24 Hours: Temp Pulse Resp BP Pulse Ox 98.3 F 71 18 132/92 95 09/13/17 08:00 09/13/17 08:00 09/13/17 08:00 09/13/17 08:00 09/13/17 08:00 Laboratory Results - last 24 hr 09/13/17 06:15: WBC 6.8 D, RBC 3.67 L, Hgb 10.8 L, Hct 32.0 L, MCV 87.3, MCH 29.3, MCHC 33.6, RDW 12.8, Plt Count 328 D, MPV 7.7, Neut % (Auto) 60.6, Lymph % (Auto) 27.7, [place] % (Auto) 6.9, Eos % (Auto) 4.4, Baso % (Auto) 0.4, Neut # ( Auto) 4.1, Lymph # (Auto) 1.9, [place] # (Auto) 0.5, Eos # (Auto) 0.3, Baso # (Auto ) 0.0 09/13/17 06:15: Sodium 140, Potassium 4.3, Chloride 109 H, Carbon Dioxide 29, Anion Gap 6.3, BUN 1 L D, Creatinine 0.61, Estimated Creat Clear 104, Estimated GFR 103, Est GFR ( Amer) 124 D, Glucose 103, Calcium 8.1 L I & O for Last 24 hours: Intake & Output 09/10/17 09/11/17 09/12/17 09/13/17 11:59 11:59 11:59 11:59 Intake Total 434 / 434 3230 / 3230 4615 / 4615 3275 / 3275 Output Total 300 / 300 604 / 604 2850 / 2850 1300 / 1300 Balance 134 / 134 2626 / 2626 1765 / 1765 1974 / 1974 Weight 136 lb 9 oz 136 lb 9.01 oz - Constitutional no acute distress - *Routine Respiratory Exam Present: CTA bilaterally - *Routine Cardiovascular Exam Present: RRR - *Routine Abdominal Exam Present: soft, normoactive bowel sounds, tenderness (LLQ) - *Routine Extremities Exam Absent: edema Assessment and Plan (1) C. difficile colitis Current visit: Yes Status: Acute Category: Medical Code(s): A04.72 - Enterocolitis due to Clostridium difficile, not specified as recurrent (2) Hypokalemia Current visit: Yes Status: Acute Category: Medical Code(s): E87.6 - Hypokalemia (3) Vasovagal episode Current visit: Yes Status: Acute Category: Medical Code(s): R55 - Syncope and collapse (4) HTN (hypertension) Current visit: Yes Status: Chronic Category: Medical Code(s): I10 - Essential (primary) hypertension - Assessment and plan all Dx Assessment and Plan for all problems:: Patient doing well on p.o. antibiotics. Possible discharge home soon. Will discuss with Dr. Gomez. <Austin Gomez - Last Filed: 09/14/17 08:46> Internal Medicine - PN: Subj *Date: 09/14/17 *Time: 08:45 Exam Vital signs and Labs for Last 24 Hours: Temp Pulse Resp BP Pulse Ox 98.0 F 67 18 153/72 95 09/14/17 08:00 09/14/17 08:00 09/14/17 08:00 09/14/17 08:00 09/14/17 08:00 I & O for Last 24 hours: Intake & Output 09/11/17 09/12/17 09/13/17 09/14/17 11:59 11:59 11:59 11:59 Intake Total 3230 / 3230 4615 / 4615 3275 / 3275 1475 / 1475 Output Total 604 / 604 2850 / 2850 1300 / 1300 Balance 2626 / 2626 1765 / 1765 1974 / 1974 1475 / 1475 Weight 136 lb 9.01 oz Assessment and Plan (1) C. difficile colitis Current visit: Yes Status: Acute Category: Medical Code(s): A04.72 - Enterocolitis due to Clostridium difficile, not specified as recurrent (2) Hypokalemia Current visit: Yes Status: Acute Category: Medical Code(s): E87.6 - Hypokalemia (3) Vasovagal episode Current visit: Yes Status: Acute Category: Medical Code(s): R55 - Syncope and collapse (4) HTN (hypertension) Current visit: Yes Status: Chronic Category: Medical Code(s): I10 - Essential (primary) hypertension - Assessment and plan all Dx Assessment and Plan for all problems:: Will advance diet and possibly discharge home tomorrow.
--- NOTE | 2017-09-14 08:26 | Progress Note ---
<Gladis Penny - Last Filed: 09/14/17 08:25> Internal Medicine - PN: Subj *Date: 09/14/17 *Time: 08:25 Interval history: Patient states she is feeling better today. She denies any vomiting but still has some nausea. She was able to eat her breakfast. She has been up moving around in her room. She is still having diarrhea but it is starting to form. Exam Vital signs and Labs for Last 24 Hours: Temp Pulse Resp BP Pulse Ox 98.0 F 67 18 153/72 95 09/14/17 08:00 09/14/17 08:00 09/14/17 08:00 09/14/17 08:00 09/14/17 08:00 I & O for Last 24 hours: Intake & Output 09/11/17 09/12/17 09/13/17 09/14/17 11:59 11:59 11:59 11:59 Intake Total 3230 / 3230 4615 / 4615 3275 / 3275 1475 / 1475 Output Total 604 / 604 2850 / 2850 1300 / 1300 Balance 2626 / 2626 1765 / 1765 1974 / 1974 1475 / 1475 Weight 136 lb 9.01 oz - Constitutional no acute distress - *Routine Respiratory Exam Present: CTA bilaterally - *Routine Cardiovascular Exam Present: RRR - *Routine Abdominal Exam Present: soft, normoactive bowel sounds, tenderness (in the epigastric area and LLQ) - *Routine Extremities Exam Absent: edema Assessment and Plan (1) C. difficile colitis Current visit: Yes Status: Acute Category: Medical Code(s): A04.72 - Enterocolitis due to Clostridium difficile, not specified as recurrent (2) Hypokalemia Current visit: Yes Status: Acute Category: Medical Code(s): E87.6 - Hypokalemia (3) Vasovagal episode Current visit: Yes Status: Acute Category: Medical Code(s): R55 - Syncope and collapse (4) HTN (hypertension) Current visit: Yes Status: Chronic Category: Medical Code(s): I10 - Essential (primary) hypertension - Assessment and plan all Dx Assessment and Plan for all problems:: Possible discharge home today on oral abx. Will discuss with Dr. Gomez. <Austin Gomez - Last Filed: 09/14/17 08:47> Internal Medicine - PN: Subj *Date: 09/14/17 *Time: 08:46 Exam Vital signs and Labs for Last 24 Hours: Temp Pulse Resp BP Pulse Ox 98.0 F 67 18 153/72 95 09/14/17 08:00 09/14/17 08:00 09/14/17 08:00 09/14/17 08:00 09/14/17 08:00 I & O for Last 24 hours: Intake & Output 09/11/17 09/12/17 09/13/17 09/14/17 11:59 11:59 11:59 11:59 Intake Total 3230 / 3230 4615 / 4615 3275 / 3275 1475 / 1475 Output Total 604 / 604 2850 / 2850 1300 / 1300 Balance 2626 / 2626 1765 / 1765 1974 / 1974 1475 / 1475 Weight 136 lb 9.01 oz Assessment and Plan (1) C. difficile colitis Current visit: Yes Status: Acute Category: Medical Code(s): A04.72 - Enterocolitis due to Clostridium difficile, not specified as recurrent (2) Hypokalemia Current visit: Yes Status: Acute Category: Medical Code(s): E87.6 - Hypokalemia (3) Vasovagal episode Current visit: Yes Status: Acute Category: Medical Code(s): R55 - Syncope and collapse (4) HTN (hypertension) Current visit: Yes Status: Chronic Category: Medical Code(s): I10 - Essential (primary) hypertension - Assessment and plan all Dx Assessment and Plan for all problems:: Patient seen and examined. She is improved and stable for discharge.
--- NOTE | 2017-09-15 16:03 | Discharge Summary ---
General - General Admission date:: 09/10/17 <Austin Gomez - 09/20/17 14:05> 09/10/17 <Gladis Penny - 09/15/17 16:03> Discharge date: 09/14/17 <Gladis Penny - 09/15/17 16:03> HPI HPI: Ms. Gross is a 51-year-old female with a history of hypertension and depression who presented to [facility] emergency room after experiencing nausea, vomiting, and diarrhea for 24 hours. She and her also described a syncopal episode when she was going to the bathroom. Her states that she was out for about a minute and she did lose control of her bowels or bladder. She describes numerous stools along with vomiting and dry heaving. She denies fever. She denies chest pain, shortness of breath and palpitations. She was seen in the office of [facility] on 2017 and was started on Ceftin for a right otitis media. She has had no other respiratory symptoms. She arrived in the room about 2 AM and has had minimal sleep. She has had no further vomiting or diarrhea since admission. She continues to have some abdominal pain. To note patient has recently been started on hydrochlorothiazidelosartan 12.5 50 for her hypertension. Follow-up in the office on 08/31/2017 showed a blood pressure of 118/74. <Gladis Penny - 09/15/17 16:03> Hospital Course Hospital Course: The patient's PCR diarrhea panel was positive for C. diff and her potassium was low. She was started on potassium in her IV fluids as well as p.o. potassium She was started on IV flagyl, GI rest, antiemetics, and pain control. Her CT showed possible proctitis and colitis. She also had cholelithiasis and a right ovarian cyst. Her potassium normalized with replacement. Her diet was advanced as tolerated. Her diarrhea slowed but continued throughout her stay. Her pain improved. She was switched to oral flagyl, however this made her vomit. She was then changed to PO vancomycin. She tolerated this and was stable to be discharged home. She will f/u with Dr. Gomez at [facility]. <Gladis Penny - 09/15/17 16:03> Objective Vital signs: Temp Pulse Resp BP Pulse Ox 98.0 F 67 18 153/72 95 09/14/17 08:00 09/14/17 08:00 09/14/17 08:00 09/14/17 08:00 09/14/17 08:00 <PatriciaAustin curtis William - 09/20/17 14:05> Temp Pulse Resp BP Pulse Ox 98.0 F 67 18 153/72 95 09/14/17 08:00 09/14/17 08:00 09/14/17 08:00 09/14/17 08:00 09/14/17 08:00 <HemalathaGladis - 09/15/17 16:03> Narrative: - Constitutional no acute distress Comments: Appears uncomfortable at times - *Routine HEENT Exam Head: Present: normocephalic, atraumatic Eye: Present: PERRL. Absent: conjunctival icterus, scleral injection ENT: Present: mucous membranes moist, oropharynx clear, external ear normal, TM' s clear bilaterally - *Routine Neck Exam Present: supple. Absent: carotid bruit, lymphadenopathy, thyromegaly - *Routine Respiratory Exam Present: CTA bilaterally (Anteriorly and posteriorly) - *Routine Cardiovascular Exam Present: RRR - *Routine Abdominal Exam Present: soft, normoactive bowel sounds, tenderness (Diffusely) - *Routine Extremities Exam Absent: edema, calf tenderness - *Routine Skin Exam Present: dry, warm - *Routine Neurological Exam Present: alert, oriented X3 <Gladis Penny - 09/15/17 16:03> DS: Diagnosis - Discharge Diagnosis (1) C. difficile colitis Status: Acute (2) Hypokalemia Status: Acute (3) Vasovagal episode Status: Acute (4) HTN (hypertension) Status: Chronic <Gladis Penny - 09/15/17 15:54> (1) C. difficile colitis Status: Acute (2) Hypokalemia Status: Acute (3) Vasovagal episode Status: Acute (4) HTN (hypertension) Status: Chronic <Austin Gomez William - 09/20/17 14:05> Discharge Plan - Patient Discharge Instructions ACTIVITY: Continue current activity <Gladis Penny - 09/15/17 16:03> DIET: continue same diet <Gladis Penny - 09/15/17 16:03> Patient Instructions: Antibiotic-associated Colitis -- C difficile, DI for Colitis <Austin Gomez - 09/20/17 14:05> Forms: <Austin Gomez - 09/20/17 14:05> - Follow up Plan Follow up with: Austin Gomez MD [Primary Care Provider] - 09/24/17 ( In [facility]) <Austin Gomez - 09/20/17 14:05> Disposition: Home, Self-Care <Austin Gomez - 09/20/17 14:05> Home Medications: Home Medications Medication Instructions Recorded Confirmed Type Losartan/Hydrochlorothiazide 1 tab PO DAILY 09/09/17 09/09/17 History [Losartan-Hctz 50-12.5 mg Tab] <Austin Gomez - 09/20/17 14:05> Prescriptions/Medication Reconciliation: New Vancomycin HCl [Vancomycin 500mg vial] 125 mg PO QID 7 Days vial Dicyclomine HCl [Bentyl 10mg capsule] 20 mg PO Q6HP PRN #20 cap PRN Reason: Cramping Continue Losartan/Hydrochlorothiazide [Losartan-Hctz 50-12.5 mg Tab] 1 tab PO DAILY Discontinued Cefdinir [Omnicef 300mg Capsule] 300 mg PO BID <Austin Gomez - 14:05> - Additional Information Additional Information: Concur with assessment and plan for discharge. <Austin Gomez - 09/20/17 14:05>
== END 2017-09-14 10:27 | disposition home or self-care (01) ==
LOC: ER 23:05 → 2ND 23:05 → OBSVTOIN 09-10 01:15 → 2ND 09-10 01:41
PROVIDERS: ADMIT Family Medicine; ATTEND Family Medicine

== ENCOUNTER 2020-11-17 07:27 | Emergency (ER) | payer BC, SELFPAY ==
[2020-11-17 07:29] VITALS: BP 174/94; PULSE 79; RESP 16; TEMP 36.8; O2SAT 97; BMI 27.2
--- NOTE | 2020-11-17 07:40 | XR_ITS ---
PROCEDURE: XR ANKLE LT MIN 3V CLINICAL INDICATION: fall, swelling COMPARISON: No exams were available for comparison FINDINGS: Pain there is a nondisplaced avulsion fracture involving the tip of the fibula The joint spaces are well-preserved. No significant degenerative/arthritic changes. No erosive changes evident. Other findings:Lateral soft tissue swelling. Prominent calcaneal spur IMPRESSION: Nondisplaced avulsion fracture involving the tip of the distal fibula with overlying soft tissue swelling Dictated by: Adam Pineda MD 11/17/2020 08:48 Adam Pineda MD in [place] 11/17/2020 08:48
--- NOTE | 2020-11-17 07:40 | PC.NURSE ---
notified rad of xray order
[2020-11-17 07:53] VITALS: BP 175/84; PULSE 69; O2SAT 99
[2020-11-17 08:29] VITALS: BP 180/78; PULSE 71; O2SAT 98
--- NOTE | 2020-11-17 08:35 | HMH.EDGENADL ---
ED Disposition Clinical Impression: Ankle fracture Disposition: Home, Self-Care Condition on Discharge: Good Instructions: Ankle Fracture Additional Instructions: Return the emergency department within the next few days should you have worsening pain or any other concerns. Otherwise follow-up with orthopedic surgery as recommended Referrals: Austin Gomez MD [Primary Care Provider] - Augustus Wahl MD [Staff Physician] - - Critical Care Critical Care Time: No Attestation: On 11/17/20, the high probability of a clinically significant, sudden or life threatening deterioration of the following system(s) required my full and direct attention, intervention and personal management. The time I documented below is in addition to time spent performing reported procedures but includes the following listed in this critical care notation. Medical Decision Making - Medical Records Medical records reviewed: Yes: I reviewed the patient's medical records. - Bebo Inquiry Pt receiving controlled substance: No Vital Signs: 11/17/20 07:29 11/17/20 07:53 11/17/20 08:29 Temperature 98.2 F Temperature Source Oral Pulse Rate 69 71 Pulse Rate [Right Radial] 79 Respiratory Rate 16 Blood Pressure 175/84 H 180/78 H Blood Pressure [Right Arm] 174/94 H Blood Pressure Mean [Right Arm] 120 Blood Pressure Source [Right Arm] Automatic Cuff Blood Pressure Position [Right Arm] Sitting 02 Sat by Pulse Oximetry 97 99 98 Oxygen Delivery Method Room Air Medical Decision Narrative: Patient presents with ankle injury as above. She is in no acute distress nontoxic-appearing does appear to be neurovascularly intact and does have no compartment syndrome. No other injuries noted. X-ray shows fibular distal fracture, placed in short leg splint and plan to refer to orthopedic for evaluation. General Adult HPI - General Chief complaint: Extremity Injury, Lower Stated complaint: 11-17 AO fall, left ankle pain Time Seen by Provider: 11/17/20 08:15 Mode of Arrival: Wheelchair Limitations: No Limitations Description of Symptoms (Recalled from ER Triage Doc. by RN): pt c/o L ankle pain r/t fall this morning. Swelling noted to lateral L ankle. +pulses noted - History of Present Illness HPI narrative: 55-year-old female presents with ankle injury. She says she was walking down the steps and turned her ankle. She says the pain is constant dull nonradiating no knee pain. She did not fall and hit her head. She is not able to bear weight at this time. - Related Data Home Medications Medication Instructions Recorded Confirmed Losartan/Hydrochlorothiazide 1 tab PO DAILY 09/09/17 09/09/17 [Losartan-Hctz 50-12.5 mg Tab] Previous Rx's Medication Instructions Recorded Dicyclomine HCl [Bentyl 10mg 20 mg PO Q6HP PRN #20 cap 09/14/17 capsule] Vancomycin HCl [Vancomycin 500mg 125 mg PO QID 7 Days vial 09/14/17 vial] Allergies Allergy/AdvReac Type Severity Reaction Status Date / Time Tetanus Vaccines and Toxoid AdvReac Severe I-ITCHING Verified 09/09/17 23:12 [TETANUS VACCINES & TOXOID] [facility] History - Hepatitis A Screen Drug use history?: No High risk sexual behaviors?: No History of sexually transmitted infection?: No Currently employed?: No Childcare worker?: No Do you have indoor plumbing?: Yes Do you have electricity?: Yes Attestation statement:: This patient has been screened for Hepatitis A risk factors. Medical History: Reports:: Depression, Hypertension, Migraine Denies:: Cancer, Chronic Obstructive Pulmonary Disease (COPD), Diabetes Mellitus Type 1, Diabetes Mellitus Type 2, MRSA Other Medical History: Reports: Arthritis, Sinus Problems Other Surgeries: Yes: Appendectomy, , Hernia Repair Amputation: No Fractures: No - Social History Smoking Status: Never smoker Alcohol Intake: never Occupational Status: employed Housing: house Household Members:
--- NOTE | 2020-11-17 09:43 | PC.NURSE ---
orthoglass splint applied to LLE per CAROLEE GARCIA
[2020-11-17 09:49] VITALS: BP 176/84; PULSE 62; RESP 16; TEMP 36.8; O2SAT 100
== END 2020-11-17 09:49 | disposition home or self-care (01) ==
PROVIDERS: Emergency Provider Emergency Medicine; PCP Family Medicine
DX: S82.832A Other fracture of upper and lower end of left fibula, initial encounter for closed fracture (principal); W10.9XXA Fall (on) (from) unspecified stairs and steps, initial encounter; Y92.019 Unspecified place in single-family (private) house as the place of occurrence of the external cause; I10 Essential (primary) hypertension; Z88.7 Allergy status to serum and vaccine
CPT/HCPCS: 29515; 73610; 99283

== ENCOUNTER → 2020-12-09 08:33 | Outpatient (CLI) | payer BC, SELFPAY ==
--- NOTE | 2020-12-09 08:37 | XR_ITS ---
PROCEDURE: XR ANKLE WT BEARING LT MIN 3V CLINICAL INDICATION: fracture follow up COMPARISON: CR XR ANKLE LT MIN 3V from 11/17/2020 FINDINGS: The fracture line at the tip the lateral malleolus appears somewhat less apparent suggesting healing. There is a linear transverse calcific density 6 mm distal to the tip of the lateral malleolus consistent with an avulsion fracture. There remains overlying soft tissue swelling. Prominent calcaneal spur. IMPRESSION: Displaced avulsion fracture of the tip the lateral malleolus with healing nondisplaced fracture at the tip of the lateral malleolus. Soft tissue swelling Dictated by: Adam Pineda MD 12/09/2020 14:33 Adam Pineda MD in [place] 12/09/2020 14:33
== END ==
LOC: RAD 08:34
PROVIDERS: PCP Family Medicine; Visit Provider Podiatrist
DX: S82.832D Other fracture of upper and lower end of left fibula, subsequent encounter for closed fracture with routine healing (principal); T14.8XXA Other injury of unspecified body region, initial encounter
CPT/HCPCS: 73610

== ENCOUNTER → 2021-01-10 14:18 | Outpatient (CLI) | payer BC, SELFPAY ==
--- NOTE | 2021-01-10 14:21 | XR_ITS ---
PROCEDURE: XR ANKLE WT BEARING LT MIN 3V CLINICAL INDICATION: fracture follow up COMPARISON: CR XR ANKLE LT MIN 3V from 11/17/2020 CR XR ANKLE WT BEARING LT MIN 3V from 12/09/2020 FINDINGS: There is a nondisplaced fracture involving the tip of the lateral malleolus. Fracture is nondisplaced not significantly changed. Prominent calcaneal spur noted. IMPRESSION: No change nondisplaced avulsion fracture at the tip the lateral malleolus Dictated by: Adam Pineda MD 01/10/2021 17:48 Adma Pineda MD in [place] 01/10/2021 17:48
== END ==
LOC: RAD 14:19
PROVIDERS: PCP Family Medicine; Visit Provider Nurse Practitioner
DX: S82.832D Other fracture of upper and lower end of left fibula, subsequent encounter for closed fracture with routine healing (principal); S99.912D Unspecified injury of left ankle, subsequent encounter; S93.492D Sprain of other ligament of left ankle, subsequent encounter; S93.422D Sprain of deltoid ligament of left ankle, subsequent encounter; T14.8XXA Other injury of unspecified body region, initial encounter
CPT/HCPCS: 73610

== ENCOUNTER → 2021-02-02 13:04 | Outpatient (CLI) | payer BC, SELFPAY ==
--- NOTE | 2021-02-02 13:07 | XR_ITS ---
PROCEDURE: XR ANKLE WT BEARING LT MIN 3V CLINICAL INDICATION: FRACTURE FOLLOW UP COMPARISON: CR XR ANKLE LT MIN 3V from 11/17/2020 CR XR ANKLE WT BEARING LT MIN 3V from 12/09/2020 CR XR ANKLE WT BEARING LT MIN 3V from 01/10/2021 FINDINGS: Nondisplaced lateral malleolar fracture is barely visible. Ankle mortise is preserved. There is good alignment. Small calcaneal spur noted IMPRESSION: Healing lateral malleolar fracture nondisplaced Dictated by: Adam Pineda MD 02/02/2021 13:42 Adam Pineda MD in [place] 02/02/2021 13:42
== END ==
LOC: RAD 13:05
PROVIDERS: PCP Family Medicine; Visit Provider Nurse Practitioner
DX: S82.832D Other fracture of upper and lower end of left fibula, subsequent encounter for closed fracture with routine healing (principal); S93.422D Sprain of deltoid ligament of left ankle, subsequent encounter; S93.492A Sprain of other ligament of left ankle, initial encounter
CPT/HCPCS: 73610

== ENCOUNTER 2022-12-25 10:29 | Emergency (ER) | payer BC, SELFPAY ==
[2022-12-25 10:50] VITALS: BP 128/86; PULSE 77; RESP 19; TEMP 37.1; O2SAT 97; BMI 30.9
--- NOTE | 2022-12-25 11:05 | EXP.UTC ---
Discharge Plan Disposition Patient Disposition: Home, Self-Care Condition: Good Prescriptions Prescriptions: New methylprednisolone [Medrol (Marv)] 4 mg tablets,dose pack See Rx Instructions .Route .COMPLEX 6 Days Qty: 21 0RF Rx Instructions: taper pack; amoxicillin-pot clavulanate 875-125 mg Tablet 1 tab PO Q12H 7 Days Qty: 14 0RF No Action fexofenadine [Malia Allergy] 180 mg tablet 180 mg PO DAILY meloxicam [Mobic] 7.5 mg tablet 7.5 mg PO ONCE 30 Days Qty: 30 2RF Referrals Follow up/Referrals: Austin Gomez MD [Primary Care Provider] - See instructions Activity Restrictions/Add. Instructions Additional Instructions/Restrictions: *Monitor Temp, Over the counter Motrin or Tylenol as directed/as needed Tylenol every 4 hours and Motrin every 6 hours (as long as your family doctor has told you that you can take it) for fever or pain. and straight to ER if unable to lower temp less than 101.0 after medication given *Warm salt water gargles may help to soothe the throat *Throat Lozenges? *Warm fluids like tea with honey may help to soothe the throat? *Sleep elevated *Humidifier/Vaporizer Follow up IMMEDIATELY for new or worsening symptoms or no Noticeable improvement over the next 48-72 hours. 911 for difficulty breathing or swallowing Clinical Impressions Clinical Impression: Sinusitis Qualifiers: Sinusitis location: unspecified location Chronicity: unspecified Qualified Code(s): J32.9 - Chronic sinusitis, unspecified Instructions Patient Instructions: DI for Sinusitis, Sinusitis Discharge ED Provider: Chloe Mishra [facility] General Stated complaint: head congestion, no appetite Mode of Arrival: Ambulatory Source of Information: Patient Limitations: No Limitations Time Seen by Provider: 12/25/22 11:05 Description of Symptoms (Recalled from Triage Doc. by RN): PATIENT C/O HEAD CONGESTION, SORE GUMS, SINUS PAIN, AND SWELLING TO LEFT SIDE OF FACE SINCE SUNDAY HEENT Symptoms (Recalled from RN notes): Yes Resp Symptoms (Recalled from RN notes): No Skin Symptoms (Recalled from RN notes): No MS Symptoms (Recalled from RN notes): No Functional Status (Recalled from RN notes): WNL History of Present Illness Provider Complaint: Patient states that she has been having sinus pain and pressure, soreness in her gums, and head congestion with soreness in her throat and feels like her throat is swollen States that it has got worse since Sunday and today the pressure was worse so she came in to get checked Related Data Home Medications Medication Instructions Recorded Confirmed fexofenadine 180 mg tablet 180 mg PO DAILY 11/18/20 02/02/21 (Malia Allergy) Previous Rx's Medication Instructions Recorded meloxicam 7.5 mg tablet (Mobic) 7.5 mg PO ONCE pain 30 days #30 11/18/20 tabs amoxicillin 875 mg-potassium 1 tab PO Q12H 7 days #14 tabs 12/25/22 clavulanate 125 mg tablet methylprednisolone 4 mg tablets in See Rx Instructions .Route 12/25/22 a dose pack (Medrol (Marv)) .COMPLEX 6 days #21 tabs Allergies Allergy/AdvReac Type Severity Reaction Status Date / Time Tetanus Vaccines and Toxoid AdvReac Severe I-ITCHING Verified 02/02/21 13:53 [TETANUS VACCINES & TOXOID] Worker's Comp Is this a Worker's Comp case?: No [facility] Disclaimer: The information contained in this section may have been updated after the patient was seen, as this information can be updated by other users. Social History Smoking Status: Never smoker alcohol intake: never current occupational status: employed Travel in the last 8 weeks: None household members: spouse housing: house current occupation: [employer] current occupational exposures/hazards: No caffeine: Yes ROS Obtained: Yes All systems reviewed & no additional complaints except as documented and Yes Systems reviewed as appropriate & no add
[2022-12-25 11:12] VITALS: BP 128/86; PULSE 77; RESP 19; TEMP 37.1; O2SAT 97
== END 2022-12-25 11:15 | disposition home or self-care (01) ==
PROVIDERS: Emergency Provider Nurse Practitioner; PCP Family Medicine
DX: J01.90 Acute sinusitis, unspecified (principal)
CPT/HCPCS: 99204; 99212; G0463

== ENCOUNTER 2023-01-25 10:44 | Emergency (ER) | payer BC, SELFPAY ==
[2023-01-25 11:00] VITALS: BP 154/92; PULSE 76; RESP 18; TEMP 36.8; O2SAT 95; BMI 29.2
--- NOTE | 2023-01-25 11:19 | EXP.UTC ---
Discharge Plan Disposition Patient Disposition: Home, Self-Care Condition: Good Prescriptions Prescriptions: New amoxicillin [amoxicillin] 875 mg tablet 875 mg PO Q12H Qty: 20 0RF methylprednisolone 4 mg Tablets,Dose Pack 4 mg PO DIRECTED Qty: 21 0RF No Action fexofenadine [Malia Allergy] 180 mg tablet 180 mg PO DAILY Referrals Follow up/Referrals: Austin Gomez MD [Primary Care Provider] - See instructions Activity Restrictions/Add. Instructions Additional Instructions/Restrictions: Drink plenty of fluids. Take tylenol or ibuprofen for pain or fever. Take the medications as directed. Follow up with your regular doctor. GO TO THE ER FOR ANY WORSENING SYMPTOMS Clinical Impressions Clinical Impression: Otitis media Stand Alone Forms Stand Alone Forms: Work/School Release Instructions Patient Instructions: Middle Ear Infection Discharge ED Provider: Oscar Angel [facility] General Stated complaint: pain in left ear Time Seen by Provider: 01/25/23 11:19 History of Present Illness Provider Complaint: She states that for the past 5 days she has had worsening right ear pain, pressure, and decreased hearing in that ear. She also has sinus congestion and a scratchy sore throat. She denies significant chest congestion, but she does have a cough. She denies fever/chills/body aches. Related Data Home Medications Medication Instructions Recorded Confirmed fexofenadine 180 mg tablet 180 mg PO DAILY 11/18/20 01/25/23 (Malia Allergy) Previous Rx's Medication Instructions Recorded amoxicillin 875 mg tablet 875 mg PO Q12H #20 tabs 01/25/23 methylprednisolone 4 mg tablets in 4 mg PO DIRECTED #21 tabs 01/25/23 a dose pack Allergies Allergy/AdvReac Type Severity Reaction Status Date / Time Tetanus Vaccines and Toxoid AdvReac Severe I-ITCHING Verified 01/25/23 11:27 [TETANUS VACCINES & TOXOID] [facility] Disclaimer: The information contained in this section may have been updated after the patient was seen, as this information can be updated by other users. Social History Smoking Status: Never smoker alcohol intake: never current occupational status: employed Travel in the last 8 weeks: None household members: spouse housing: house current occupation: [employer] current occupational exposures/hazards: No caffeine: Yes ROS Obtained: Yes All systems reviewed & no additional complaints except as documented Constitutional Constitutional: Denies chills, Reports fever(s) and Reports poor appetite Eyes Eyes: Denies eye discharge ENT Ears, Nose, Mouth, and Throat: Denies ear discharge, Reports otalgia, Denies hearing loss, Denies sinus pain and Reports sore throat Cardiovascular Cardiovascular: Denies chest pain and Denies dyspnea Respiratory Respiratory: Denies chest congestion, Reports cough and Denies dyspnea Gastrointestinal Gastrointestingal: Denies abdominal pain, diarrhea, nausea or vomiting Musculoskeletal Musculoskeletal: Denies arthralgias Integumentary/Breasts Skin/Breast: Denies rash Physical Exam General General appearance: alert and in no apparent distress Head Head exam: atraumatic, normocephalic and normal inspection Eye Eye exam: Present normal appearance; Absent PERRL or EOMI ENT ENT exam: Present mucous membranes moist and normal external ear exam Expanded ENT Exam TM/Canal exam: Bilateral TM: erythema, bulging and effusion Nose exam: Absent sinus tenderness Nasal speculum exam: Bilateral: normal Mouth exam: Present normal external inspection and other; Absent drooling Teeth exam: Present normal inspection Throat exam: Present tonsillar erythema and tonsillomegaly Neck Neck exam: Present normal inspection, full ROM and trachea midline; Absent tenderness, meningismus or lymphadenopathy Chest Chest inspection: Present normal inspection a
[2023-01-25 11:48] VITALS: BP 154/92; PULSE 76; RESP 18; TEMP 36.8; O2SAT 95
== END 2023-01-25 11:48 | disposition home or self-care (01) ==
PROVIDERS: Emergency Provider Nurse Practitioner Family; PCP Family Medicine
DX: H66.93 Otitis media, unspecified, bilateral (principal); R05.9 Cough, unspecified; R09.81 Nasal congestion; R07.0 Pain in throat
CPT/HCPCS: 99212; 99214; G0463

== ENCOUNTER 2023-06-05 08:08 | Outpatient (CLI) | payer BC, SELFPAY ==
--- NOTE | 2023-06-05 08:09 | MM_ITS ---
PROCEDURE INFORMATION: Exam: MG Bilateral Screening 3D Mammography Exam date and time: 06/05/2023 8:06 AM Age: 57 years old Clinical indication: Screening examination TECHNIQUE: Imaging protocol: Bilateral Screening tomosynthesis and 2D mammography including computer-aided detection (CAD) when performed. COMPARISON: 1. MG MM MAMMO DIGITAL SIMEON DIAGN LEFT 11/04/2018 10:36 AM 2. MG MM MAMMO DIGITAL SIMEON SCREEN BILAT 10/30/2018 12:48 PM FINDINGS: MAMMOGRAPHY: Breast composition: The breasts are extremely dense, which lowers the sensitivity of mammography. Mass: None. Architectural distortion: None. Calcifications: No suspicious calcifications. Asymmetric density: None. Skin thickening: None. Axillary adenopathy: None. IMPRESSION: No mammographic evidence of malignancy. Annual screening is recommended unless otherwise clinically indicated. ASSESSMENT: BI-RADS Category 1: Negative
== END 2023-06-05 23:59 ==
LOC: RAD 08:09
PROVIDERS: PCP Family Medicine; Visit Provider Obstetrics & Gynecology
DX: Z12.31 Encounter for screening mammogram for malignant neoplasm of breast (principal)
CPT/HCPCS: 77063; 77067

== ENCOUNTER 2025-01-12 09:09 | Outpatient (CLI) | payer BC, SELFPAY ==
[2025-01-12 17:21] LABS: Coronavirus 19, PCR Not Detected (NotDetected); Influenza A, PCR Not Detected (NotDetected); Influenza B, PCR Not Detected (NotDetected)
--- OUTSIDE RECORDS SUMMARY | 2025-01-13 08:34 | XMS_ITS ---
Author Organization Unknown ENCOUNTERS Encounter Performer Location Date Diagnosis Diagnosis Status Pre Admit [facility] [place] [address] [place] [address] [id number] Emergency [facility] [place] [address] [place] [address] [id number] FOREIGN Pre Admit [address] [place] [address] [id number] Emergency [place] [address] [place] [address] [id number] FOREIGN Emergency [place] [address] [place] [address] [phone] FOREIGN *Note: Encounters from your own facility or health system may be excluded. Allergies, Adverse Reactions, Alerts Allergen Type Severity Identification Date Tetanus Vaccines and Toxoid drug allergy 4 [id number] Medications Name Date Quantity Days Supplied GPI Number
--- OUTSIDE RECORDS SUMMARY | 2025-01-13 08:34 | XMS_ITS | Patient Health Record ---
Author Organization [facility] Address [address] [place] [address] Care Team Providers Care Panel Edge Sealer Name Role Phone [facility] er Unavailable Yessenia Medrano Unavailable [phone] Allergies Allergen (clinical drug ingredient) Drug/Non Drug Allergy documented on EMR Reaction Allergy Type Onset Date Status Tetanus Toxoids Unknown Drug Allergy A ctive Results Component Value Reference Range Notes BLOOD GLUCOSE (IH) Reviewed date:07/22/2024 11:16:27 AM Interpretation: Performing Lab: Notes/Report: Blood Glucose 97 70 - 100 mg/dl Lipid Panel (IH) Reviewed date:07/22/2024 11:15:49 AM Interpretation: Performing Lab: Notes/Report: TChol 217 0 - 199 mg/dl HDL 47 0 - 59 mg/dl TC/HDL 4.6 0 - 5.1 LDL 128 0 - 99 mg/dl TRG 209 0 - 149 mg/dl Reason For Referral No Information Medications Medication SIG (Take, Route, Fr equency, Duration) Notes Start Date End Date Status Malia Allergy 60 MG 1 tablet Orally Twice a day Active Vital Signs Temperature 98.2 degrees Fahrenheit 07/22/2024 Respiratory Rate 18 /min 07/22/2024 Blood pressure diastolic 88 mm Hg 07/22/2024 Height 58 in 07/22/2024 Blood pressure systolic 138 mm Hg 07/22/2024 Weight 150.60 lbs 07/22/2024 BMI 31.47 kg/m2 07/22/2024 Encounters Encounter Location Date Provider Diagnosis [address] [id number] 07/22/2024 Yessenia Medrano Screening for hypertension Z13.6 ; Screening for lipid disorders Z13.220 and Screening for diabetes mellitus Z13.1 Assessments Encounter Date Diagnosis (ICD Code) Assessment Notes Treatment Notes Treatment Clinical Notes Section Notes 07/22/2024 Screening for hypertension (ICD-10 - Z13.6) 07/22/2024 Screening for lipid disorders (ICD-10 - Z13.220) 07/22/2024 Screening for diabetes mellitus (ICD-10 - Z13.1) 07/22/2024 Other Reviewed results of screening with patient as well as recommendatio ns for lifestyle changes as appropriate. Patient expressed understanding . Reminder to document amount of time spent with patient on Biometric Screening and counseling of their results in the Preventative Medicine section. Plan Of Treatment Pending Test Test Name Order Date Lipid Panel (IH) 07/28/2017 BLOOD GLUCOSE (Glucometer) Screening(IH) 07/28/2017 Insurance Providers Payer Name Payer Address Payer Phone Subscriber Number Group Number Insured Name Patient Relationship to Insured Coverage Start Date Coverage End Date PROMPT PAY/Bill to Patient Andie Gross Self - patient is the insured
--- OUTSIDE RECORDS SUMMARY | 2025-01-13 08:34 | XMS_ITS | Clinical Summary ---
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 Name Role Phone Main Pichardo MD Primary Care Provider [phone] Allergies No known active allergies Medications No known medications Active Problems No known active problems Immunizations Immunization Administration Dates Next Due Influenza Vaccine, Unspecified Formulation 01/30 Surgical History Surgery Date Site/Laterality Comments HERNIA REPAIR ABDOMEN SURGERY 2 c-sections APPENDECTOMY LAPAROSCOPIC APPENDECTOMY 01/29/2011 Abdomen/N/A Laparoscopic Appendectomy; Surgeon: Oscar Delgado MD; Location: [facility] MAIN OR; Service: General SECTION x 2 GYNECOLOGIC CRYOSURGERY Medical History Medical History Date Comments Migraines Family History Medical History Relation Name Comments Heart Disease Father Breast Cancer Maternal Grandfather Cancer Maternal Grandfather Osteoporosis Maternal Grandmother Breast Cancer Mother Cancer Mother breast & bone Osteoporosis Mother Breast Cancer Paternal Aunt 1 Cancer Paternal Aunt 1 Osteoporosis Paternal Aunt 1 Breast Cancer Paternal Aunt 2 Cancer Paternal Aunt 2 Heart Disease Paternal Aunt 2 Heart Disease Paternal Uncle 1 Heart Disease Paternal Uncle 2 Heart Disease Paternal Uncle 3 Heart Disease Paternal Uncle 4 Relation Name Status Comments Father Maternal Grandfather Maternal Grandmother Mother Paternal Aunt 1 Paternal Aunt 2 Paternal Uncle 1 Paternal Uncle 2 Paternal Uncle 3 Paternal Uncle 4 Social History Tobacco Use Types Packs/Day Years Used Date Smoking Tobacco: Never Smokeless Tobacco: Never Alcohol Use Standard Drinks/Week Comments No 0 (1 standard drink = 0.6 oz pur e alcohol) Sexually Active Control Partners Comments Yes Surgical Male Tubal Ligation Comments No Sex and Gender Information Value Date Recorded Sex Assigned at Not on file Legal Sex Female 4:07 AM EDT Gender Identity Not on file Sexual Orientation Not on file Obstetrics History Para Term AB IAB SAB Ectopic Multiple Livin g Live Births 5 2 2 3 3 2 Date Outcome GA Total Labor Labor/2nd/3rd Weight Sex Type Anes PTL Richelle A1 A5 Name Clin Term Term SAB SAB SAB Last Filed Vital Signs Vital Sign Reading Time Taken Comments Blood Pressure 136/82 05/19/2014 3:46 PM EDT Pulse 76 01/31/2011 7:23 AM EST Temperature 36.8 C (98.3 F) 01/31/2011 7:19 AM EST Respiratory Rate 16 01/31/2011 7:23 AM EST Oxygen Saturation 95% 01/31/2011 7:23 AM EST Inhaled Oxygen Concentration - - Weight 57.9 kg (127 lb 9.6 oz) 05/19/2014 3:46 P M EDT Height 147.3 cm (4' 10 ) 05/19/2014 3:46 PM EDT Body Mass Index 26.67 05/19/2014 3:46 PM EDT Plan of Treatment Health Maintenance Due Date Last Done Comments Annual Wellness Exam 10/27/1966 Hepatitis C Screening 10/27/1981 DTaP/TDaP/Td (1 - Tdap) 10/27/1982 HPV/Pap Cotest 10/27/1993 Cologuard 10/27/2008 Colon Cancer Screening 10/27/2008 Colonoscopy 10/27/2008 FIT 10/27/2008 Sigmoidoscopy 10/27/2008 Virtual Colonography 10/27/2008 Pneumococcal Vaccine 50+ (1 of 1 - PCV) 10/27/2013 Zoster (1 of 2) 10/27/2013 Cervical Cancer Screening 05/19/2017 Pap Smear 05/19/2017 05/19/2014 Breast Cancer Screening 11/04/2020 11/05/19 19, 10/30/2018, 03/30/2014, Additional history exists COVID-19 Vaccine (2024- season) 2024 Influenza Vaccine (#1) 2024 01/30/2011 Hepatitis B Vaccine Aged Out No longe r eligible based on patient's age to complete this topic Meningococcal B Vaccine Aged Out No l onger eligible based on patient's age to complete this topic Procedures Procedure Name Priority Date/Time Associated Diagnosis Comments MM MAMMO DIGITAL SIMEON DIAGN LEFT Routine 11/04/2018 10:42 AM EDT Breast asymmetry SITE WORKER CYTOLOGY REPORT Routine 05/19/2014 8 :49 PM EDT from Last 3 Months or Most Recently Relevant to Health Maintenance Results * MM MAMMO DIGITAL SIMEON DIAGN LEFT (11/04/2018 10:42 AM EDT) Anatomical Region Laterality Modality Breast Left Mammography 11/04/2018 10:5 1 AM EDT Impressions 11/04/2018 10:51 AM EDT Negative ([id number]) ~ RECOMMENDATION: Routine screening mammogram in 1 year. Tomosynthesis recommended ~ DISCLAIMER * Any patient with a palpable abnormality, unexplained by breast imaging, should be managed on clinical basis by the attending physician. * Breast imaging has a false negative rate of 15%. * The patient was notified by mail of the results of this examination. *The patient's information was entered into a reminder system with a target due date for the next mammogram. Narrative 11/04/2018 10:51 AM EDT Procedure:MM MAMMO DIGITAL SIMEON DIAGN LEFT ~ Reason for exam: addl eval requested from prior study. N64.89-Other specified disorders of [id number]-CM ~ MM MAMMO DIGITAL SIMEON DIAGN LEFT CC and MLO view(s) were taken of the left breast. The breast tissue is very dense. Breasts with this density lower the sensitivity of mammography to detect focal lesions. Prior study comparison: Compared with prior studies the most recent being 10/30/18, 03/30/14 No discrete lesion on additional views. Summation artifact on screening exam. ~ Procedure Note Roshan Guillaume MD - 11/04/2018 Procedure:MM MAMMO DIGITAL SIMEON DIAGN LEFT ~ Reason for exam: addl eval requested from prior study. N64.89-Other specified disorders of gtpofl-GZH-21-CM ~ MM MAMMO DIGITAL SIMEON DIAGN LEFT CC and MLO view(s) were taken of the left breast. The breast tissue is very dense. Breasts with this density lower the sensitivity of mammography to detect focal lesions. Prior study comparison: Compared with prior studies the most recentbeing 10/30/18, 03/30/14 No discrete lesion on additional views. Summation artifact on screening exam. ~ IMPRESSION: Negative ([id number]) ~ RECOMMENDATION: Routine screening mammogram in 1 year. Tomosynthesis recommended ~ DISCLAIMER * Any patient with a palpable abnormality, unexplained by breast imaging, should be managed on clinical basis by the attending physician. * Breast imaging has a false negative rate of 15%. * The patient was notified by mail of the results of this examination. *The patient's information was entered into a reminder system with atarget due date for the next mammogram. us Roshan Pichardo MD IMG MAMMOGRAPHY ORDERABLE S Final Result * SITE WORKER CYTOLOGY REPORT (05/19/2014 8:49 PM EDT) Flat Screen Worker Cytology Report PATIENT NAME:NATALIE GROSS Flat Screen Worker Cytology Report Accession Number Collected Date/Time Received Date/Time [id number] 05/19/14 20:49 EDT 05/19/14 23:24 EDT GY Specimen Source Specimen Vag/Cerv/Endocx?: Cerv/Endocerv Statement of Adequacy Satisfactory for Evaluation. Transformation Zone Absent. Diagnosis NEGATIVE FOR INTRAEPITHELIAL LESION OR MALIGNANCY. Comment Note: Concurrent High-Risk HPV mRNA testing is NEGATIVE. The Pap Smear is a screening test that aids in the detection of cervical cancer and cancer precursors. Both false positive and false negative results can occur. The test should be used at regular intervals, and positive results should be confirmed before definitive therapy. Processed using the ThinPrep It Security Engineer automated cytology screening device ([employer]). [employer] Administrator: BANDAR 05/22/2014 Completed by: ONUR Oneal (Electronically signed by) 05/22/2014 [facility] Laboratory [facility] 05/19/2014 8:49 PM EDT Don Villafana MD PATHOLOGY ORDERABLES Final Result [facility] [address] [place] [address] from Last 3 Months or Most Recently Relevant to Health Maintenance Insurance [employer] PPO Care Teams Window Shade Cutter Relationship Specialty Start Date End Date Main Pichardo MD [address] [place], [place] [id number] [address] [place] [address] PCP - General Psychiatry & Neurology-Neurology 01/29/11
== END 2025-01-12 23:59 ==
LOC: LAB.DROPOF 01-13 08:33
PROVIDERS: PCP Family Medicine; Visit Provider Nurse Practitioner
DX: J32.9 Chronic sinusitis, unspecified (principal)
CPT/HCPCS: 87631